=== PATIENT | female | born 1940 | race Caucasian/White ===

== ENCOUNTER 2017-03-25 17:04 | Observation (INO) | payer MEDICARE ==
--- NOTE | 2017-03-25 17:23 | ERPHSYRPT ---
- History of Present Illness Time Seen by Provider: 03/25/17 17:13 Historian: patient, family, other (neighbor) Exam Limitations: clinical condition, other (ementia) Physician History: patient wiht hx of dementia and mental illness lives by self; family getting power of attorney general; ill x 2-3 days with N&V and abd pain; patient not a good historian; neighbor and daughter in law fair historians; ? fever; no other hx available Timing/Duration: today (worse), day(s) (3 days ill), worse Activities at Onset: rest Quality: aching Abdominal Pain Onset Location: RLQ, generalized abdomen Pain Radiation: no radiation Severity of Pain-Max: moderate Severity of Pain-Current: mild Modifying Factors: Improves With: vomiting Associated Symptoms: diaphoresis, fever/chills, loss of appetite, nausea, vomiting Previous symptoms: no prior history Allergies/Adverse Reactions: Penicillins Allergy (Verified 04/10/16 16:16) Sulfa (Sulfonamide Antibiotics) Allergy (Verified 04/10/16 16:16) Home Medications: Citalopram Hydrobromide 20 mg* [ceLEXa 20 MG] 20 mg PO HS 01/02/14 [History] Lorazepam 1 mg [Ativan 1 MG] 1 mg PO TID 01/02/14 [History] Meclizine HCl 25 mg [Antivert 25 mg] 50 mg PO TID 01/02/14 [History] Pravastatin Sodium 10 mg PO HS 01/02/14 [History] Propranolol HCl 20 mg [Inderal 20 MG] 40 mg PO TID 01/02/14 [History] Hx Tetanus, Diphtheria Vaccination/Date Given: No Hx Influenza Vaccination/Date Given: No Hx Pneumococcal Vaccination/Date Given: No - Review of Systems Constitutional: Fever, Chills Eyes: No Symptoms Ears, Nose, & Throat: No Symptoms Respiratory: No Cough, No Dyspnea, No Wheezing Cardiac: No Chest Pain, No Palpitations, No Syncope Abdominal/Gastrointestinal: Abdominal Pain, Nausea, Vomiting, No Diarrhea, No Constipation Genitourinary Symptoms: No Symptoms Musculoskeletal: No Symptoms Skin: No Symptoms Neurological: Other (confused), No Focal Weakness, No Headache Psychological: Other (mental illnes ? etiology), No Alcohol Abuse, No Drug Abuse , No Suicidal Ideations, No Homicidal Ideations Endocrine: No Symptoms Hematologic/Lymphatic: No Symptoms Immunological/Allergic: No Symptoms - Past Medical History Pertinent Past Medical History: Yes Neurological History: No Pertinent History ENT History: No Pertinent History Cardiac History: High Cholesterol, Hypertension, Other Respiratory History: No Pertinent History Endocrine Medical History: No Pertinent History Musculoskeletal History: Fractures GI Medical History: No Pertinent History History: No Pertinent History Psycho-Social History: Anxiety, Depression Female Reproductive Disorders: No Pertinent History Other Medical History: VERTIGO - Past Surgical History Past Surgical History: Yes Neuro Surgical History: No Pertinent History Cardiac: No Pertinent History Respiratory: No Pertinent History Gastrointestinal: Cholecystectomy, Other Genitourinary: No Pertinent History Musculoskeletal: No Pertinent History Female Surgical History: Hysterectomy, Other Other Surgical History: CYST REMOVED FROM ABD, BLADDER SUSPENSION - Social History Smoking Status: Never smoker Exposure to second hand smoke: No Alcohol Use: None Drug Use: none Patient Lives Alone: No Significant Family History: no pertinent family hx - Female History Hx Now: No - Nursing Vital Signs Nursing Vital Signs: Initial Vital Signs Pulse Rate 69 03/25/17 17:04 Respiratory Rate 20 03/25/17 17:04 Blood Pressure 172/83 03/25/17 17:04 O2 Sat by Pulse Oximetry 100 03/25/17 17:04 Pain Scale Pain Intensity 0 - Physical Exam General Appearance: mild distress, alert, other (confused adn disoriented) Eye Exam: PERRL/EOMI, eyes nml inspection Ears, Nose, Throat Exam: normal ENT inspection, TMs normal, pharynx normal, moist mucous membranes Neck Exam: normal inspection, non-tender, supple, full range of motion, No meningismus, No JVD Respiratory Exam: normal breath sounds, lungs clear, airway intact, No chest tenderness, No respiratory distress, No rhonchi, No wheezing Cardiovascular Exam: regular rate/rhythm, normal heart sounds, normal peripheral pulses, capillary refill <2 sec, No murmur Gastrointestinal/Abdomen Exam: soft, normal bowel sounds, tenderness (RLQ), No mass, No guarding, No rebound, No hernia, No organomegaly Pelvic Exam: deferred Rectal Exam: deferred Back Exam: normal inspection, normal range of motion, No CVA tenderness, No rash Extremity Exam: normal inspection, normal range of motion, No elisa's sign, No pedal edema Neurologic Exam: alert, cooperative, dynamometer tuner II-XII nml as tested, sensation nml, other (hyper; talkatvie; inappropriate), No oriented x 3, No normal mood/affect , No motor weakness Skin Exam: normal color, dry, other (hot), No rash, No petechiae Lymphatic Exam: No adenopathy SpO2 Interpretation: normal SpO2: 100 Oxygen Delivery: Room Air - Course Nursing assessment & vital signs reviewed: Yes - Radiology Exams Chest X-ray Interpretation: Interpreted by me, Negative, No Pneumonia, No Pneumothorax , Nml Heart Size, No Infiltrates - CT Exams Abdomen/Pelvis CT Interpretation: Tele-radiologist Report, No appendicitis, Other ( diverticulosis and HH; appendolith small but no appendicitis) Ordered Tests: Active Orders 24 hr Category Date Time Status Up With Assistance ROUTINE Activity 03/25/17 19:28 Ordered Accucheck STAT Care 03/25/17 17:13 Active Admission/Status Order ROUTINE Care 03/25/17 19:28 Ordered Call Admit Doctor for Orders ON ADMISSION Care 03/25/17 19:30 Ordered Crude Oil Treater STAT Care 03/25/17 17:13 Active Cath for Specimen-Straight STAT Care 03/25/17 17:13 Active Code Status Order ROUTINE Care 03/25/17 19:28 Ordered Fall Protocol ROUTINE Care 03/25/17 19:30 Ordered IV Care Q6H Care 03/25/17 19:28 Ordered Pulse Oximetry (ED) STAT Care 03/25/17 17:13 Active Re-Check Vital Signs STAT Care 03/25/17 17:13 Active Rectal Temperature STAT Care 03/25/17 17:13 Active Ketan Baires ROUTINE Care 03/25/17 19:28 Ordered Telemetry ROUTINE Care 03/25/17 19:28 Ordered Weight,Daily 0600 Care 03/25/17 19:28 Ordered Regular Diet Diet 03/25/17 Dinner Ordered ABDOMEN AND PELVIS W/0 CONTRAS [CT] Stat Exams 03/25/17 18:15 Taken CHEST 1 VIEW (PORTABLE) Stat Exams 03/25/17 17:13 Taken AMYLASE Stat Lab 03/25/17 17:30 Completed BLOOD CULTURE Stat Lab 03/25/17 17:35 Received CBC W DIFF Stat Lab 03/25/17 17:30 Completed CMP Stat Lab 03/25/17 17:30 Completed CULTURE,URINE Stat Lab 03/25/17 18:31 Received LIPASE Stat Lab 03/25/17 17:30 Completed Lactic Acid Stat Lab 03/25/17 17:13 Completed UA W/ MICROSCOPIC Stat Lab 03/25/17 18:31 Completed Transfer Order Routine Transfer 03/25/17 19:27 Ordered Medication Summary Generic Name Dose Route Start Last Admin Trade Name Freq PRN Reason Stop Dose Admin Sodium Chloride 1,000 mls @ 100 mls/hr 03/25/17 17:15 03/25/17 17:56 Sodium Chloride 0.9% 1000 Ml IV 04/24/17 17:14 100 mls/hr .Q10H VICKI Administration Discontinued Medications Generic Name Dose Route Start Last Admin Trade Name Freq PRN Reason Stop Dose Admin Promethazine HCl 12.5 mg 03/25/17 18:49 03/25/17 19:03 Phenergan 25 Mg Inj IV 03/25/17 18:50 12.5 mg STAT ONE Administration Promethazine HCl Confirm 03/25/17 19:02 Phenergan 25 Mg Inj Administered 03/25/17 19:03 Dose 25 mg .ROUTE .[place] ONE Lab/Rad Data: Laboratory Result Diagrams 03/25/17 17:30 03/25/17 17:30 Laboratory Results 03/25/17 03/25/17 03/25/17 Range/Units 18:31 17:30 17:30 WBC (4.0-10.5) K/mm3 RBC (4.1-5.4) M/mm3 Hgb (12.0-16.0) gm/dl Hct (35-47) % MCV (78-100) fl MCH (26-32) pg MCHC (32-36) g/dl RDW (11.5-14.0) % Plt Count (150-450) K/mm3 MPV (6-9.5) fl Gran % (36.0-66.0) % Lymphocytes % (24.0-44.0) % Monocytes % (0.0-12.0) % Eosinophils % (0.00-5.0) % Basophils % (0.0-0.4) % Basophils # (0-0.4) Sodium (136-145) mEq/L Potassium (3.5-5.1) mEq/L Chloride (98-107) mEq/L Carbon Dioxide (21-32) mEq/L Anion Gap (5-15) MEQ/L BUN (9-20) mg/dL Creatinine (0.55-1.30) mg/dl Estimated GFR ML/MIN Glucose (70-110) MG/DL Lactic Acid (0.4-2.0) Calcium (8.5-10.1) mg/dL Total Bilirubin (0.2-1.0) mg/dL AST (15-37) U/L ALT (12-78) U/L Alkaline Phosphatase (46-116) U/L Serum Total Protein (6.4-8.2) gm/dL Albumin (3.4-5.0) g/dL Amylase 33 (25-115) U/L Lipase 149 (73-393) U/L Ur Collection Type CATH Urine Color LT.YELLOW (YELLOW) Urine Appearance CLEAR (CLEAR) Urine pH 7.0 (5-6) Ur Specific [place] 1.010 (1.005-1.025) Urine Protein 30 (Negative) Urine Ketones MODERATE (NEGATIVE) Urine Blood 250 (0-5) Steven/ul Urine Nitrite NEGATIVE (NEGATIVE) Urine Bilirubin NEGATIVE (NEGATIVE) Urine Urobilinogen NORMAL (0-1) mg/dL Ur Leukocyte Esterase NEGATIVE (NEGATIVE) Urine Microscopic RBC 15-25 (0-2) /HPF Urine Microscopic WBC 0-2 (0-5) /HPF Ur Epithelial Cells FEW (FEW) /HPF Amorphous Crystals MODERATE (NEGATIVE) /HPF Urine Bacteria FEW (NEGATIVE) /HPF Urine Mucus SLIGHT (NEGATIVE) /HPF Urine Glucose 50 (NEGATIVE) mg/dL Influenza Type A Ag NEGATIVE (NEGATIVE) Influenza Type B Ag NEGATIVE (NEGATIVE) RSV (PCR) NEGATIVE (Negative) Specimen Received 03/25/17 1830 03/25/17 03/25/17 03/25/17 Range/Units 17:30 17:30 17:13 WBC 10.0 (4.0-10.5) K/mm3 RBC 3.76 L (4.1-5.4) M/mm3 Hgb 12.0 (12.0-16.0) gm/dl Hct 33.9 L (35-47) % MCV 90.2 (78-100) fl MCH 31.9 (26-32) pg MCHC 35.4 (32-36) g/dl RDW 12.1 (11.5-14.0) % Plt Count 287 (150-450) K/mm3 MPV 9.9 H (6-9.5) fl Gran % 73.9 H (36.0-66.0) % Lymphocytes % 18.5 L (24.0-44.0) % Monocytes % 7.2 (0.0-12.0) % Eosinophils % 0.2 (0.00-5.0) % Basophils % 0.2 (0.0-0.4) % Basophils # 0.02 (0-0.4) Sodium 123 L (136-145) mEq/L Potassium 3.7 (3.5-5.1) mEq/L Chloride 89 L (98-107) mEq/L Carbon Dioxide 20.6 L (21-32) mEq/L Anion Gap 17.0 H (5-15) MEQ/L BUN 16 (9-20) mg/dL Creatinine 1.32 H (0.55-1.30) mg/dl Estimated GFR 42 ML/MIN Glucose 127 H (70-110) MG/DL Lactic Acid 1.7 (0.4-2.0) Calcium 9.0 (8.5-10.1) mg/dL Total Bilirubin 0.70 (0.2-1.0) mg/dL AST 28 (15-37) U/L ALT 18 (12-78) U/L Alkaline Phosphatase 55 (46-116) U/L Serum Total Protein 7.5 (6.4-8.2) gm/dL Albumin 3.6 (3.4-5.0) g/dL Amylase (25-115) U/L Lipase (73-393) U/L Ur Collection Type Urine Color (YELLOW) Urine Appearance (CLEAR) Urine pH (5-6) Ur Specific [place] (1.005-1.025) Urine Protein (Negative) Urine Ketones (NEGATIVE) Urine Blood (0-5) Steven/ul Urine Nitrite (NEGATIVE) Urine Bilirubin (NEGATIVE) Urine Urobilinogen (0-1) mg/dL Ur Leukocyte Esterase (NEGATIVE) Urine Microscopic RBC (0-2) /HPF Urine Microscopic WBC (0-5) /HPF Ur Epithelial Cells (FEW) /HPF Amorphous Crystals (NEGATIVE) /HPF Urine Bacteria (NEGATIVE) /HPF Urine Mucus (NEGATIVE) /HPF Urine Glucose (NEGATIVE) mg/dL Influenza Type A Ag (NEGATIVE) Influenza Type B Ag (NEGATIVE) RSV (PCR) (Negative) Specimen Received reviewed - Progress Progress: improved (over time), re-examined Progress Note: 03/25/17 18:23 cbc wnl ; lactate wnl; no more vomiting after emds; cxr wnl; no fever; BS ok; CT and labs pending; will monitor and recheck 03/25/17 18:[address]; nausea returning; some pain in abdomen non specific; will medicate and recheck CBC ok; lactic A wnl; 03/25/17 18:53 recheck ; ; Cr up 1.32; Na++ low 123; anion gap up 17.; CT results and labs pending medicated for N&V will monitor and recheck 03/25/17 19:24 CT no obstruction; no appendicitis; small HH ; radha and lip wnl; ua ketones only ; Dr Garcia consulted and will admit Discussed with .: Ravi (consulted adn will admit) Will see patient in: hospital (observation) Counseled pt/family regarding: lab results, diagnosis, need for follow-up, rad results - Departure Time of Disposition: 19:25 Departure Disposition: Observation Clinical Impression: Abdominal pain Condition: Serious Critical Care Time: No Referrals: YANIQUE GARCIA MD [Primary Care Provider] -
[2017-03-25 17:47] LABS: BASOPHIL % 0.2 % (0.0-0.4); Eosinophil % 0.2 % (0.00-5.0); Granulocytes % 73.9 % (36.0-66.0); Lymphocytes % 18.5 % (24.0-44.0); Mean Cell Volume 90.2 fl (78-100); Mean Corpuscular Hemoglobin 31.9 pg (26-32); Mean Platelet Volume 9.9 fl (6-9.5); Monocytes % 7.2 % (0.0-12.0); Platelet Count 287 K/mm3 (150-450); Red Blood Count 3.76 M/mm3 (4.1-5.4); Red Cell Distribution Width 12.1 % (11.5-14.0)
[2017-03-25] MEDS ORDERED: Sodium Chloride 0.9% 1000 ML 1,000 ML ONE (17:52)
[2017-03-25] MEDS: Sodium Chloride 0.9% 1000 ML 1,000 ML IV SCH (17:56)
[2017-03-25 18:13] LABS: ALBUMIN 3.6 g/dL (3.4-5.0); BILIRUBIN,TOTAL 0.7 mg/dL (0.2-1.0); Carbon Dioxide 20.6 mEq/L (21-32); Potassium 3.7 mEq/L (3.5-5.1); Total Protein 7.5 gm/dL (6.4-8.2)
[2017-03-25] MEDS ORDERED: Phenergan 25 MG INJ IV ONE (18:49)
[2017-03-25 18:56] LABS: Bilirubin NEGATIVE (NEGATIVE); Blood 250 Ery/ul (0-5); COMPLETE URINE MICROSCOPIC? YES; Collection Type CATH; Glucose 50 mg/dL (NEGATIVE); Leukocyte Esterase NEGATIVE (NEGATIVE)
[2017-03-25 18:57] LABS: ADD URINE CULTURE? YES (NO); Bacteria FEW /HPF (NEGATIVE); Epithelial Cells FEW /HPF (FEW); Mucus SLIGHT /HPF (NEGATIVE); WBC 0-2 /HPF (0-5)
[2017-03-25 19:01] LABS: LIPASE 149 U/L (73-393)
[2017-03-25] MEDS ORDERED: Phenergan 25 MG INJ ONE (19:02)
[2017-03-25] MEDS ORDERED: TYLENOL 325 MG PO PRN (21:59)
[2017-03-25] MEDS: Zocor 10MG PO SCH (23:01)
[2017-03-25] MEDS: Inderal 20 MG PO SCH (23:01)
[2017-03-25] MEDS: ceLEXa 20 MG PO SCH (23:02)
[2017-03-25] MEDS: ANTIVERT 25 MG PO SCH (23:02)
[2017-03-25] MEDS: Namenda 5 MG PO SCH (23:03)
[2017-03-26] MEDS: Sodium Chloride 0.9% 1000 ML 1,000 ML IV SCH ×2 (03:56→14:16)
[2017-03-26] MEDS ORDERED: MEDICATION INTERVENTION MC PRN (07:17)
[2017-03-26] MEDS: TYLENOL 325 MG PO PRN ×2 (07:57→21:02)
--- NOTE | 2017-03-26 08:52 | XRAY ---
Indication: Abdominal pain, nausea, and vomiting. Multiple contiguous axial images obtained through the abdomen and pelvis without contrast as ordered. Comparison: CT renal stone study October 03, 2014. Lung bases are clear. Heart is not enlarged. Again small hiatal hernia. Images through the abdomen slightly degraded by respiration artifact. Noncontrasted stomach and bowel loops appear nonobstructed. Tiny appendicolith but no evidence for appendicitis. Again mild sigmoid diverticulosis without diverticulitis, hepatic calcified granulomas, cholecystectomy, and hysterectomy. No free fluid/air. Remaining liver, pancreas, spleen, adrenal glands, kidneys, ureters, and bladder appear unremarkable for noncontrast exam. Minimal aortoiliac calcifications without AAA. Osseous structures intact with mild degenerative changes throughout the spine. Again benign appearing chunky calcifications in the right gluteus. Impression: 1. Tiny appendicolith but no features for appendicitis. 2. Stable small hiatal hernia and sigmoid diverticulosis. 3. No acute intra-abdominal/pelvic abnormalities on this noncontrast exam. CTDI 23.68
--- NOTE | 2017-03-26 08:55 | XRAY ---
Indication: Fever. Comparison: December 25, 2014. Portable chest again demonstrates normal heart and lungs. Bony thorax intact.
[2017-03-26] MEDS: Inderal 20 MG PO SCH ×3 (10:18→21:01)
[2017-03-26] MEDS: ANTIVERT 25 MG PO SCH ×3 (10:19→21:03)
[2017-03-26] MEDS: Namenda 5 MG PO SCH ×2 (10:19→21:01)
[2017-03-26 11:03] LABS: BASOPHIL % 0.2 % (0.0-0.4); Eosinophil % 0.6 % (0.00-5.0); Granulocytes % 70.8 % (36.0-66.0); Lymphocytes % 19.6 % (24.0-44.0); Mean Cell Volume 94.6 fl (78-100); Mean Platelet Volume 11.2 fl (6-9.5); Monocytes % 8.8 % (0.0-12.0); Red Blood Count 3.53 M/mm3 (4.1-5.4); Red Cell Distribution Width 12.6 % (11.5-14.0); White Blood Count 8.9 K/mm3 (4.0-10.5)
[2017-03-26 11:38] LABS: ALBUMIN 3.6 g/dL (3.4-5.0); ANION GAP 18.4 MEQ/L (5-15); BILIRUBIN,TOTAL 0.6 mg/dL (0.2-1.0); Carbon Dioxide 17.2 mEq/L (21-32); Potassium 4.3 mEq/L (3.5-5.1)
[2017-03-26 12:08] LABS: Platelet Count 85 K/mm3 (150-450)
--- NOTE | 2017-03-26 12:49 | PCM.HP ---
History of Present Illness - Chief Complaint Chief Complaint: abdominal pain with N&V and dehydration History of Present Illness: is a 76 year old female.patient with hx of dementia and mental illness lives by self; family getting power of assistant district attorney; ill x 2-3 days with N& V and abd pain; patient not a good historian; neighbor and daughter in law fair historians; ? fever; no other hx available Timing/Duration: today (worse), day(s) (3 days ill), worse Activities at Onset: rest Quality: aching Abdominal Pain Onset Location: RLQ, generalized abdomen Pain Radiation: no radiation Severity of Pain-Max: moderate Severity of Pain-Current: mild Modifying Factors: Improves With: vomiting Associated Symptoms: diaphoresis, fever/chills, loss of appetite, nausea, vomiting - Review of Systems Constitutional: Fatigue, Lethargy, Weakness, No Fever, No Chills Eyes: No Symptoms Ears, Nose, & Throat: No Symptoms Respiratory: No Cough, No Short Of Breath Cardiac: No Chest Pain, No Edema, No Syncope Abdominal/Gastrointestinal: No Abdominal Pain, No Nausea, No Vomiting, No Diarrhea Genitourinary Symptoms: No Dysuria Musculoskeletal: No Back Pain, No Neck Pain Skin: No Rash Neurological: No Dizziness, No Focal Weakness, No Sensory Changes Psychological: No Symptoms Endocrine: No Symptoms Hematologic/Lymphatic: No Symptoms Immunological/Allergic: No Symptoms Medications & Allergies Home Medications: Home Medication List Citalopram Hydrobromide 20 mg* [ceLEXa 20 MG] 20 mg PO HS 01/02/14 [History Confirmed 03/25/17] Meclizine HCl 25 mg [Antivert 25 mg] 25 mg PO TID 01/02/14 [History Confirmed 03/25/17] Propranolol HCl 20 mg [Inderal 20 MG] 40 mg PO TID 01/02/14 [History Confirmed 03/25/17] Acetaminophen [Acetaminophen ER] 1,300 mg PO Q8H PRN PRN 03/25/17 [History Confirmed 03/25/17] Lubiprostone [Amitiza] 8 mcg PO BID 03/25/17 [History Confirmed 03/25/17] Memantine HCl 10 mg PO BID 03/25/17 [History Confirmed 03/25/17] Simvastatin 5 mg PO HS 03/25/17 [History Confirmed 03/25/17] Allergies/Adverse Reactions: Allergies Allergy/AdvReac Type Severity Reaction Status Date / Time Penicillins Allergy Verified 04/10/16 16:16 Sulfa (Sulfonamide Allergy Verified 04/10/16 16:16 Antibiotics) - Past Medical History Past Medical History: Yes Neurological History: No Pertinent History ENT History: No Pertinent History Cardiac History: High Cholesterol, Hypertension, Other Respiratory History: No Pertinent History Endocrine Medical History: No Pertinent History Musculoskelatal History: Fractures GI Medical History: No Pertinent History History: No Pertinent History Pyscho-Social History: Anxiety, Depression Reproductive Disorders: No Pertinent History Comment: VERTIGO - Female History Are you now?: No - Past Surgical History Past Surgical History: Yes Neuro Surgical History: No Pertinent History Cardiac History: No Pertinent History Respiratory Surgery: No Pertinent History GI Surgical History: Cholecystectomy, Other Genitourinary Surgical Hx: No Pertinent History Musculskeletal Surgical Hx: No Pertinent History Female Surgical History: Hysterectomy, Other Other Surgical History: CYST REMOVED FROM ABD, BLADDER SUSPENSION - Social History Smoking Status: Never smoker Exposure to second hand smoke: No Alcohol: None Drug Use: none Significant Family History: no pertinent family hx - Physical Exam Vital Signs: Vital Signs - 24 hr Temp Pulse Resp BP Pulse Ox 03/26/17 08:00 98.5 F 65 20 95 03/26/17 04:00 98.1 F 62 18 142/65 95 03/26/17 00:00 97.7 F 63 18 174/74 95 03/25/17 19:30 100 03/25/17 19:28 98.9 F 66 19 175/73 96 03/25/17 17:57 70 16 149/78 99 03/25/17 17:13 98.9 F 69 21 148/78 99 03/25/17 17:04 69 20 172/83 100 General Appearance: no apparent distress, alert Neurologic Exam: alert, oriented x 3, cooperative, normal mood/affect, nml cerebellar function, nml station & gait, sensation nml, No motor deficits Eye Exam: PERRL/EOMI, eyes nml inspection Ears, Nose, Throat Exam: normal ENT inspection, TMs normal, pharynx normal, moist mucous membranes Neck Exam: normal inspection, non-tender, supple, full range of motion Respiratory Exam: normal breath sounds, lungs clear, No respiratory distress Cardiovascular Exam: regular rate/rhythm, normal heart sounds, normal peripheral pulses Gastrointestinal/Abdomen Exam: soft, normal bowel sounds, No tenderness, No mass Back Exam: normal inspection, normal range of motion, No CVA tenderness, No vertebral tenderness Extremity Exam: normal inspection, normal range of motion, pelvis stable Skin Exam: normal color, warm, dry, No rash Lymphatic Exam: No adenopathy Results - Labs Lab/Micro Results: Lab Results-Last 24 Hours 03/26/17 03/26/17 Range/Units 11:00 11:00 WBC 8.9 (4.0-10.5) K/mm3 RBC 3.53 L (4.1-5.4) M/mm3 Hgb 11.3 L (12.0-16.0) gm/dl Hct 33.4 L (35-47) % MCV 94.6 (78-100) fl MCH 32.0 (26-32) pg MCHC 33.8 (32-36) g/dl RDW 12.6 (11.5-14.0) % Plt Count 85 L (150-450) K/mm3 MPV 11.2 H (6-9.5) fl Gran % 70.8 H (36.0-66.0) % Lymphocytes % 19.6 L (24.0-44.0) % Monocytes % 8.8 (0.0-12.0) % Eosinophils % 0.6 (0.00-5.0) % Basophils % 0.2 (0.0-0.4) % Basophils # 0.02 (0-0.4) Sodium 128 L (136-145) mEq/L Potassium 4.3 (3.5-5.1) mEq/L Chloride 97 L (98-107) mEq/L Carbon Dioxide 17.2 L (21-32) mEq/L Anion Gap 18.4 H (5-15) MEQ/L BUN 15 (9-20) mg/dL Creatinine 1.18 (0.55-1.30) mg/dl Estimated GFR 47 ML/MIN Glucose 117 H (70-110) MG/DL Calcium 8.6 (8.5-10.1) mg/dL Total Bilirubin 0.60 (0.2-1.0) mg/dL AST 37 (15-37) U/L ALT 24 (12-78) U/L Alkaline Phosphatase 55 (46-116) U/L Serum Total Protein 7.0 (6.4-8.2) gm/dL Albumin 3.6 (3.4-5.0) g/dL Assessment/Plan (1) Confusion Current Visit: Yes Status: Acute Code(s): R41.0 - DISORIENTATION, UNSPECIFIED (2) Anxiety Current Visit: Yes Status: Acute Code(s): F41.9 - ANXIETY DISORDER, UNSPECIFIED (3) Dementia Current Visit: Yes Status: Acute Qualifiers: Dementia type: other frontotemporal dementia Dementia behavioral disturbance: with behavioral disturbance Qualified Code(s): G31.09 - Other frontotemporal dementia; F02.81 - Dementia in other diseases classified elsewhere with behavioral disturbance Code(s): F03.90 - UNSPECIFIED DEMENTIA WITHOUT BEHAVIORAL DISTURBANCE (4) Hyponatremia Current Visit: Yes Status: Acute Code(s): E87.1 - HYPO-OSMOLALITY AND HYPONATREMIA (5) Gait disturbance Current Visit: Yes Status: Acute Code(s): R26.9 - UNSPECIFIED ABNORMALITIES OF GAIT AND MOBILITY
[2017-03-26] MEDS: ceLEXa 20 MG PO SCH (21:03)
[2017-03-26] MEDS: Zocor 10MG PO SCH (21:03)
[2017-03-27] MEDS: TYLENOL 325 MG PO PRN ×2 (05:18→22:15)
[2017-03-27 06:12] LABS: Mean Cell Volume 93.4 fl (78-100); Mean Platelet Volume 10.4 fl (6-9.5); Platelet Count 248 K/mm3 (150-450); Red Blood Count 3.49 M/mm3 (4.1-5.4); Red Cell Distribution Width 12.6 % (11.5-14.0); White Blood Count 8.5 K/mm3 (4.0-10.5)
[2017-03-27 06:45] LABS: ALBUMIN 3.4 g/dL (3.4-5.0); BILIRUBIN,TOTAL 0.5 mg/dL (0.2-1.0); Carbon Dioxide 22.7 mEq/L (21-32); Total Protein 7.1 gm/dL (6.4-8.2)
[2017-03-27] MEDS: Sodium Chloride 0.9% 1000 ML 1,000 ML IV SCH (10:25)
[2017-03-27] MEDS: Namenda 5 MG PO SCH ×2 (10:31→22:15)
[2017-03-27] MEDS: Inderal 20 MG PO SCH ×3 (10:31→22:15)
[2017-03-27] MEDS: ANTIVERT 25 MG PO SCH ×3 (10:31→22:14)
[2017-03-27] MEDS: Colace 100 MG PO SCH ×2 (14:08→22:14)
[2017-03-27] MEDS: CITROMA 296 ML PO SCH ×2 (14:09→22:16)
[2017-03-27 14:24] LABS: Bilirubin NEGATIVE (NEGATIVE); Blood 250 Ery/ul (0-5); COMPLETE URINE MICROSCOPIC? YES; Collection Type CLEAN CATCH; Glucose 100 mg/dL (NEGATIVE); Leukocyte Esterase 2+ (NEGATIVE)
[2017-03-27 15:00] LABS: Bacteria FEW /HPF (NEGATIVE); Epithelial Cells FEW /HPF (FEW); Mucus SLIGHT /HPF (NEGATIVE)
[2017-03-27] MEDS: Zocor 10MG PO SCH (22:15)
[2017-03-27] MEDS: ceLEXa 20 MG PO SCH (22:15)
[2017-03-28] MEDS: Sodium Chloride 0.9% 1000 ML 1,000 ML IV SCH (04:47)
[2017-03-28 05:36] LABS: Mean Cell Volume 92.2 fl (78-100); Mean Platelet Volume 10.2 fl (6-9.5); Platelet Count 236 K/mm3 (150-450); Red Blood Count 3.44 M/mm3 (4.1-5.4); Red Cell Distribution Width 12.4 % (11.5-14.0); White Blood Count 7.6 K/mm3 (4.0-10.5)
[2017-03-28 05:38] LABS: Mean Corpuscular Hemoglobin 31.6 pg (26-32)
[2017-03-28 06:02] LABS: ANION GAP 14.2 MEQ/L (5-15); Carbon Dioxide 23.5 mEq/L (21-32); Potassium 3.7 mEq/L (3.5-5.1)
--- NOTE | 2017-03-28 07:34 | XRAY ---
Indication: Abdominal pain. Constipation. Comparison: November 26, 2016. 2 views of the abdomen nonacute and nonobstructed with again previous cholecystectomy. There is little to no fecal debris. Solid organs unremarkable. Osseous structures intact again with mild spinal degenerative changes. Impression: Nonacute nonobstructed abdomen. Comment: Preliminary interpretation was made by [facility].
[2017-03-28] MEDS: Inderal 20 MG PO SCH ×3 (10:51→21:48)
[2017-03-28] MEDS: CITROMA 296 ML PO SCH (10:52)
[2017-03-28] MEDS: ANTIVERT 25 MG PO SCH ×3 (10:52→21:48)
[2017-03-28] MEDS: Colace 100 MG PO SCH ×2 (10:52→21:48)
[2017-03-28] MEDS: Namenda 5 MG PO SCH ×2 (10:54→21:48)
[2017-03-28] MEDS: TYLENOL 325 MG PO PRN ×2 (12:26→22:19)
[2017-03-28] MEDS: Zocor 10MG PO SCH (21:48)
[2017-03-28] MEDS: ceLEXa 20 MG PO SCH (21:48)
[2017-03-29] MEDS: TYLENOL 325 MG PO PRN (05:48)
[2017-03-29 06:08] LABS: ANION GAP 14.6 MEQ/L (5-15); Carbon Dioxide 23.9 mEq/L (21-32); Potassium 3.6 mEq/L (3.5-5.1)
[2017-03-29] MEDS: Colace 100 MG PO SCH ×2 (10:57→22:48)
[2017-03-29] MEDS: Inderal 20 MG PO SCH ×3 (10:57→22:47)
[2017-03-29] MEDS: Namenda 5 MG PO SCH ×2 (10:57→22:48)
[2017-03-29] MEDS: ANTIVERT 25 MG PO SCH ×3 (10:57→22:48)
--- NOTE | 2017-03-29 14:34 | PCM.NOTE ---
Date and Time: 03/29/17919 Subjective Assessment: Alert with periods of confusion. Not able to make safe decisions at this time. Needs geropsych inpt visit for evaluation and medication management. - Review of Systems Constitutional: No Symptoms Eyes: No Symptoms Ears, Nose, & Throat: No Symptoms Respiratory: No Symptoms Cardiac: No Symptoms Abdominal/Gastrointestinal: No Symptoms Genitourinary Symptoms: No Symptoms Musculoskeletal: No Symptoms Skin: No Symptoms Neurological: No Symptoms Psychological: Anxiety, Depression, Suicidal Ideations, Mood Changes Endocrine: No Symptoms Hematologic/Lymphatic: No Symptoms Immunological/Allergic: No Symptoms Additional Findings: Pt reports that she doesn't care what happens to her. Says that she just wants to . States, "I will just kill myself." All Other Systems: Reviewed and Negative Objective Exam General Appearance: no apparent distress, alert Neurologic Exam: alert, confusion, depressed mood/affect Skin Exam: normal color Eye Exam: PERRL Ears, Nose, Throat Exam: normal ENT inspection Respiratory Exam: normal breath sounds Cardiovascular Exam: normal heart sounds Gastrointestinal/Abdomen Exam: normal bowel sounds Extremity Exam: normal inspection Pelvic Exam: deferred Rectal Exam: deferred OBJECTIVE DATA Vital Signs: Vital Signs - 24 hr Temp Pulse Resp BP Pulse Ox 03/29/17 12:00 97.7 F 53 L 18 165/70 96 03/29/17 08:00 98.1 F 56 L 14 184/78 97 03/29/17 04:00 98.2 F 59 L 18 179/89 98 03/29/17 00:00 98.9 F 61 16 148/88 97 03/28/17 20:00 100.2 F 57 L 16 162/91 97 03/28/17 15:27 97.6 F 98 H 20 164/89 96 Pain Assessment - Last Documented Pain Intensity 0 Pain Scale Used 0-10 Pain Scale Intake and Output: Intake & Output 03/27/17 03/28/17 03/29/17 03/30/17 11:59 11:59 11:59 11:59 Intake Total 3059 2318 1973 Output Total 3550 1900 1100 Balance -491 418 873 Weight 78.018 kg 78.381 kg Lab Results: Lab Results-Last 24 Hours 03/29/17 Range/Units 05:20 Sodium 134 L (136-145) mEq/L Potassium 3.6 (3.5-5.1) mEq/L Chloride 99 (98-107) mEq/L Carbon Dioxide 23.9 (21-32) mEq/L Anion Gap 14.6 (5-15) MEQ/L BUN 12 (9-20) mg/dL Creatinine 1.19 (0.55-1.30) mg/dl Estimated GFR 47 ML/MIN Glucose 111 H (70-110) MG/DL Calcium 8.9 (8.5-10.1) mg/dL Multi-Disciplinary Progress Notes: Multi-Disciplinary Progress Notes 03/29/17 09:20 (created 03/29/17 10:33) Case Management Note by Mariam Maddox ROUNDED WITH DR. GARCIA, PT STATES, "WHAT ARE YOU GOING TO DO WITH ME." DR. GARCIA DISCUSSED WITH PT THAT HE FEELS SHE NEEDS TO GO FOR [facility] STAY FOR POSSIBLE MEDICATION ADJUSTMENT, MEDICATION MANAGEMENT. PT STATES, "I JUST WANT TO , JUST KILL ME." DR. GARCIA PROVIDED EMOTIONAL SUPPORT, DISCUSSED WITH PT THAT SHE WILL FEEL BETTER. DISCUSSED WITH PT THAT WE ARE GETTING HER HELP. PT STATES, "WELL I WANT TO , I WILL JUST DO IT MYSELF." DR. GARCIA AGAIN, PROVIDED EMOTIONAL SUPPORT. DISCUSSED WITH PT THE NEEDS FOR BEHAVIORAL INPT STAY. ATTEMPTING TO PROCURE FACILITY FOR PT TO BE TRANSFERRED. Initialized on 03/29/17 10:33 - END OF NOTE Assessment/Plan (1) Confusion Current Visit: Yes Status: Acute Code(s): R41.0 - DISORIENTATION, UNSPECIFIED (2) Anxiety Current Visit: Yes Status: Acute Assessment & Plan: Again, discussed geropsych inpt visit for medication management. Code(s): F41.9 - ANXIETY DISORDER, UNSPECIFIED (3) Dementia Current Visit: Yes Status: Chronic Qualifiers: Dementia type: other frontotemporal dementia Dementia behavioral disturbance: with behavioral disturbance Qualified Code(s): G31.09 - Other frontotemporal dementia; F02.81 - Dementia in other diseases classified elsewhere with behavioral disturbance Assessment & Plan: Discussed geropsych inpt visit for medication management and evaluation Code(s): F03.90 - UNSPECIFIED DEMENTIA WITHOUT BEHAVIORAL DISTURBANCE (4) Hyponatremia Current Visit: Yes Status: Resolved Assessment & Plan: Psychogenic hyponatremia, 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 Code(s): E87.1 - HYPO-OSMOLALITY AND HYPONATREMIA (5) Gait disturbance Current Visit: Yes Status: Resolved Code(s): R26.9 - UNSPECIFIED ABNORMALITIES OF GAIT AND MOBILITY
[2017-03-29] MEDS: Sodium Chloride 0.9% 1000 ML 1,000 ML IV SCH ×2 (17:05→17:07)
[2017-03-29] MEDS: Zocor 10MG PO SCH (22:48)
[2017-03-29] MEDS: ceLEXa 20 MG PO SCH (22:48)
--- NOTE | 2017-03-30 08:53 | PCM.DS ---
Discharge Summary Date of Admission: 03/26/17 11:00 Admitting Physician: YANIQUE GARCIA Consults: Consults on Case 03/29/17 15:46 Tele-Health Consult ROUTINE Primary Care Provider: YANIQUE GARCIA Allergies Allergies Penicillins Allergy (Verified 04/10/16 16:16) Sulfa (Sulfonamide Antibiotics) Allergy (Verified 04/10/16 16:16) Hospital Summary - Hospital Course Hospital Course: Chief Complaint Diagnosis abdominal pain with N&V and dehydration Allergies Allergy/AdvReac Type Severity Reaction Status Date / Time Penicillins Allergy Verified 04/10/16 16:16 Sulfa (Sulfonamide Allergy Verified 04/10/16 16:16 Antibiotics) Vital Signs (Last 24 hours) Temp Pulse Resp BP Pulse Ox 03/30/17 07:19 97.8 F 86 20 154/78 96 03/30/17 00:00 98.0 F 58 L 18 187/77 97 03/29/17 20:00 98.5 F 59 L 18 188/79 96 03/29/17 16:00 18 03/29/17 15:48 98.2 F 52 L 18 180/77 98 03/29/17 12:00 97.7 F 53 L 18 165/70 96 Home Medications Medication Instructions Recorded Confirmed Last Taken Type Acetaminophen [Acetaminophen ER] 1,300 mg PO Q8H PRN PRN 03/25/17 03/25/17 Unknown History Lubiprostone [Amitiza] 8 mcg PO BID 03/25/17 03/25/17 Unknown History Memantine HCl 10 mg PO BID 03/25/17 03/25/17 Unknown History Simvastatin 5 mg PO HS 03/25/17 03/25/17 Unknown History Current Medications Generic Name Dose Route Start Last Admin Trade Name Freq PRN Reason Stop Dose Admin Acetaminophen 650 mg 03/26/17 06:48 03/29/17 05:48 Tylenol 325 Mg PO 04/25/17 06:47 650 mg Q4H PRN PRN Administration PAIN, FEVER, HEADACHE Citalopram Hydrobromide 20 mg 03/25/17 22:00 03/29/17 22:48 Celexa 20 Mg PO 04/24/17 21:59 20 mg HS VICKI Administration Docusate Sodium 100 mg 03/27/17 13:00 03/29/17 22:48 Colace 100 Mg PO 04/26/17 12:59 100 mg BID VICKI Administration Sodium Chloride 1,000 mls @ 20 mls/hr 03/26/17 13:45 03/29/17 17:07 Sodium Chloride 0.9% 1000 Ml IV 04/25/17 13:44 50 mls/hr .Q24H VICKI Administration Meclizine HCl 25 mg 03/25/17 22:00 03/29/17 22:48 Antivert 25 Mg PO 04/24/17 21:59 25 mg TID VICKI Administration Memantine 10 mg 03/25/17 22:00 03/29/17 22:48 Namenda 5 Mg PO 04/24/17 21:59 10 mg BID VICKI Administration Propranolol HCl 40 mg 03/25/17 22:00 03/29/17 22:47 Inderal 20 Mg PO 04/24/17 21:59 40 mg TID VICKI Administration Simvastatin 5 mg 03/25/17 22:00 03/29/17 22:48 Zocor 10mg PO 04/24/17 21:59 5 mg HS VICKI Administration Discontinued Medications Generic Name Dose Route Start Last Admin Trade Name Ashwini PRN Reason Stop Dose Admin Acetaminophen 1,300 mg 03/25/17 21:59 Tylenol 325 Mg PO 04/24/17 21:58 Q8H PRN PRN PAIN, FEVER, HEADACHE Sodium Chloride 1,000 mls @ 100 mls/hr 03/25/17 17:15 03/26/17 03:56 Sodium Chloride 0.9% 1000 Ml IV 04/24/17 17:14 100 mls/hr .Q10H VICKI Administration Sodium Chloride Confirm 03/25/17 17:52 Sodium Chloride 0.9% 1000 Ml Administered 03/25/17 17:53 Dose 1,000 mls @ ud .ROUTE .STK-MED ONE Magnesium Citrate 15 ml 03/27/17 13:00 03/28/17 10:52 Citroma 296 Ml PO 03/28/17 22:01 Not Given BID VICKI Promethazine HCl 12.5 mg 03/25/17 18:49 03/25/17 19:03 Phenergan 25 Mg Inj IV 03/25/17 18:50 12.5 mg STAT ONE Administration Promethazine HCl Confirm 03/25/17 19:02 Phenergan 25 Mg Inj Administered 03/25/17 19:03 Dose 25 mg .ROUTE .STK-MED ONE Intake & Output (Last 24 hours) 03/27/17 03/28/17 03/29/17 03/30/17 11:59 11:59 11:59 11:59 Intake Total 3059 2318 1973 60 Output Total 3550 1900 1100 Balance -491 418 873 60 Weight 78.018 kg 78.381 kg 78.562 kg Orders (Last 24 hours) Category Date Time Status Tele-Health Consult ROUTINE Cons 03/29/17 15:46 Active Patient Care Notes (Last 24 hours) 03/29/17 09:20 (created 03/29/17 10:33) Case Management Note by Mariam Maddox ROUNDED WITH DR. GARCIA, PT STATES, "WHAT ARE YOU GOING TO DO WITH ME." DR. GARCIA DISCUSSED WITH PT THAT HE FEELS SHE NEEDS TO GO FOR [facility] STAY FOR POSSIBLE MEDICATION ADJUSTMENT, MEDICATION MANAGEMENT. PT STATES, "I JUST WANT TO , JUST KILL ME." DR. GARCIA PROVIDED EMOTIONAL SUPPORT, DISCUSSED WITH PT THAT SHE WILL FEEL BETTER. DISCUSSED WITH PT THAT WE ARE GETTING HER HELP. PT STATES, "WELL I WANT TO , I WILL JUST DO IT MYSELF." DR. GARCIA AGAIN, PROVIDED EMOTIONAL SUPPORT. DISCUSSED WITH PT THE NEEDS FOR BEHAVIORAL INPT STAY. ATTEMPTING TO PROCURE FACILITY FOR PT TO BE TRANSFERRED. Initialized on 03/29/17 10:33 - END OF NOTE agree with above, no other facility want to accept her. We talked to son who is POA and advised him to take her with him to [facility], where he lives. will get [facility] consult and follow recommendation. - Vitals & Intake/Output Vital Signs: Vital Signs Temperature 97.8 F 03/30/17 07:19 Pulse Rate 86 03/30/17 07:19 Respiratory Rate 20 03/30/17 07:19 Blood Pressure 154/78 03/30/17 07:19 O2 Sat by Pulse Oximetry 96 03/30/17 07:19 Intake & Output: Intake & Output 03/27/17 03/28/17 03/29/17 03/30/17 11:59 11:59 11:59 11:59 Intake Total 3059 2318 1973 60 Output Total 0990 1900 1100 Balance -491 418 873 60 Weight 78.018 kg 78.381 kg 78.562 kg - Lab Result Diagrams: 03/28/17 05:05 03/29/17 05:20 Discharge Exam General Appearance: no apparent distress, alert Neurologic Exam: alert, oriented x 3, cooperative, normal mood/affect, nml cerebellar function, sensation nml, No motor deficits Skin Exam: normal color, warm, dry Eye Exam: PERRL, EOMI, eyes nml inspection Ears, Nose, Throat Exam: normal ENT inspection, pharynx normal, moist mucous membranes Neck Exam: normal inspection, non-tender, supple, full range of motion Respiratory Exam: normal breath sounds, lungs clear, No respiratory distress Cardiovascular Exam: regular rate/rhythm, normal heart sounds Gastrointestinal/Abdomen Exam: soft, No tenderness, No mass Extremity Exam: normal inspection, normal range of motion Back Exam: normal inspection, normal range of motion, No CVA tenderness, No vertebral tenderness Pelvic Exam: deferred Rectal Exam: deferred Final Diagnosis/Problem List - Final Discharge Diagnosis/Problem (1) Confusion Current Visit: Yes Status: Acute (2) Anxiety Current Visit: Yes Status: Acute (3) Dementia Current Visit: Yes Status: Chronic (4) Hyponatremia Current Visit: Yes Status: Resolved (5) Gait disturbance Current Visit: Yes Status: Resolved - Discharge Discharge Date: 03/30/17 Disposition: Home, Self-Care Condition: Stable Prescriptions: Continue Propranolol HCl 20 mg [Inderal 20 MG] 40 mg PO TID Meclizine HCl 25 mg [Antivert 25 mg] 25 mg PO TID Citalopram Hydrobromide 20 mg* [ceLEXa 20 MG] 20 mg PO HS Memantine HCl 10 mg PO BID Acetaminophen [Acetaminophen ER] 1,300 mg PO Q8H PRN PRN PRN Reason: Pain And/Or Fever Simvastatin 5 mg PO HS Lubiprostone [Amitiza] 8 mcg PO BID Follow up with: YANIQUE GARCIA MD [Primary Care Provider] -
[2017-03-30] MEDS: ANTIVERT 25 MG PO SCH ×3 (10:55→21:44)
[2017-03-30] MEDS: Inderal 20 MG PO SCH ×3 (10:55→21:45)
[2017-03-30] MEDS: Namenda 5 MG PO SCH ×2 (10:56→21:45)
[2017-03-30] MEDS: Colace 100 MG PO SCH ×2 (10:56→21:44)
[2017-03-30] MEDS: TYLENOL 325 MG PO PRN ×2 (15:32→22:04)
[2017-03-30] MEDS: ceLEXa 20 MG PO SCH (21:44)
[2017-03-30] MEDS: Zocor 10MG PO SCH (21:45)
[2017-03-31] MEDS ORDERED: Catapres 0.1 MG PO ONE (03:15)
[2017-03-31] MEDS: Namenda 5 MG PO SCH (10:57)
[2017-03-31] MEDS: Inderal 20 MG PO SCH ×2 (10:57→14:30)
[2017-03-31] MEDS: Colace 100 MG PO SCH (10:58)
[2017-03-31] MEDS: ANTIVERT 25 MG PO SCH ×2 (10:58→14:31)
[2017-03-31 13:29] VITALS: O2SAT 97
[2017-03-31 16:15] VITALS: BP 158/88; PULSE 90
== END 2017-03-31 19:20 ==
LOC: ED 17:04 → MED SURG 20:07 → INTOOBSV 03-26 11:00 → OBSVTOIN 03-26 11:00
PROVIDERS: ADMIT General Practice; ATTEND General Practice
DX: R41.0 Disorientation, unspecified (principal); F41.8 Other specified anxiety disorders; F02.81 Dementia in other diseases classified elsewhere, unspecified severity, with behavioral disturbance; G31.09 Other frontotemporal neurocognitive disorder; E87.1 Hypo-osmolality and hyponatremia; R26.89 Other abnormalities of gait and mobility; Z79.899 Other long term (current) drug therapy; I10 Essential (primary) hypertension; E86.0 Dehydration; G30.9 Alzheimer's disease, unspecified; F02.80 Dementia in other diseases classified elsewhere, unspecified severity, without behavioral disturbance, psychotic disturbance, mood disturbance, and anxiety
CPT/HCPCS: 36415; 71010; 74020; 74176; 80048; 80053; 81000; 82150; 82962; 83605; 83690; 85025; 85027; 87040; 87086; 87631; 90791; 93041; 93268; 96360; 96374; 99285; G0378; J2550; P9612; Q3014; A9270-GY